=== PATIENT | female | born 1985 | race Caucasian/White ===

== ENCOUNTER 2020-11-29 12:56 | Emergency (ER) | payer MEDICAID, OTHER ==
[~2020-11-29] VITALS: Ht 167.6 cm; Wt 47.7 kg
[2020-11-29 13:00] VITALS: BP 116/76
[2020-11-29] MEDS ORDERED: LIDOcaine 1% W/epiNEPHrine 1:200,000 10ml vial IJ ONE (13:35)
[2020-11-29] MEDS ORDERED: CEPH250T PO (14:14)
[2020-11-29] MEDS ORDERED: SULF1TAB45 PO (14:14)
--- NOTE | 2020-11-29 14:20 | NUR ---
nakul Houser engaged in procedure bedside
== END 2020-11-29 14:38 | disposition home or self-care (01) ==
LOC: ER 12:57
DX: L02.416 Cutaneous abscess of left lower limb (principal); Z79.2 Long term (current) use of antibiotics; Z79.899 Other long term (current) drug therapy
CPT/HCPCS: 10060; 99283

== ENCOUNTER 2021-11-08 17:41 | Emergency (ER) | payer MEDICAID, OTHER ==
[~2021-11-08] VITALS: Ht 167.6 cm; Wt 47.7 kg
[2021-11-08 17:55] VITALS: BP 117/80
[2021-11-08] MEDS ORDERED: HYDR20OI TOP (18:06)
[2021-11-08] MEDS ORDERED: triamcinolone acetonide 40mg/ml inj IM ONE (18:15)
== END 2021-11-08 18:34 | disposition home or self-care (01) ==
LOC: ER 17:41
DX: R21 Rash and other nonspecific skin eruption (principal); M79.641 Pain in right hand; Z79.899 Other long term (current) drug therapy
CPT/HCPCS: 96372; 99283; J3301

== ENCOUNTER 2022-06-19 02:01 | Emergency (ER) | payer MEDICAID ==
[~2022-06-19] VITALS: Ht 167.6 cm; Wt 47.7 kg
[~2022-06-19 02:01] MED LIST: HYDR20OI TOP
[2022-06-19 02:03] VITALS: BP 118/81
== END 2022-06-20 06:50 | disposition home or self-care (01) ==
LOC: ER 02:02
DX: S01.81XD Laceration without foreign body of other part of head, subsequent encounter (principal); Z48.00 Encounter for change or removal of nonsurgical wound dressing; X58.XXXD Exposure to other specified factors, subsequent encounter
CPT/HCPCS: 99281

== ENCOUNTER 2022-10-19 16:23 | Emergency (ER) | payer MEDICAID ==
[~2022-10-19] VITALS: Ht 167.6 cm; Wt 50.0 kg
[2022-10-19] MEDS ORDERED: triamcinolone acetonide 0.5% cream 15gm TP STA (16:41)
[2022-10-19] MEDS ORDERED: triamcinolone acetonide 40mg/ml inj IM ONE (16:45)
[2022-10-19] MEDS ORDERED: PRED10TA23 PO (16:47)
[2022-10-19] MEDS ORDERED: TRIA15CR61 TOP (16:47)
[2022-10-19 17:06] VITALS: BP 108/79
== END 2022-10-19 17:07 | disposition home or self-care (01) ==
LOC: ER 16:24
DX: L30.9 Dermatitis, unspecified (principal); Z79.899 Other long term (current) drug therapy
CPT/HCPCS: 96372; 99284; J3301; 99283

== ENCOUNTER 2022-10-30 03:58 | Emergency (ER) | payer MEDICAID ==
[~2022-10-30] VITALS: Ht 167.6 cm; Wt 50.0 kg
[~2022-10-30 03:58] MED LIST changes: +TRIA15CR61 TOP
[2022-10-30 04:14] VITALS: BP 94/73
[2022-10-30] MEDS ORDERED: DOXYCYCLINE 100MG CAPSULE PO STA (04:28)
[2022-10-30] MEDS ORDERED: DOXY100C43 PO (04:29)
[2022-10-30] MEDS ORDERED: ibuprofen 200mg tablet PO ONE (04:30)
== END 2022-10-30 04:43 | disposition home or self-care (01) ==
LOC: ER 03:58
DX: L03.115 Cellulitis of right lower limb (principal); Z79.899 Other long term (current) drug therapy
CPT/HCPCS: 99283

== ENCOUNTER 2022-12-02 01:21 | Emergency (ER) | payer MEDICAID ==
[~2022-12-02] VITALS: Ht 167.6 cm; Wt 48.4 kg
[~2022-12-02 01:21] MED LIST changes: -TRIA15CR61 TOP
[2022-12-02 01:45] VITALS: BP 121/88
[2022-12-02] MEDS ORDERED: acetaminophen 325mg tablet PO ONE (05:05)
== END 2022-12-02 08:43 | disposition left against medical advice (07) ==
LOC: ER 01:21
DX: S51.832A Puncture wound without foreign body of left forearm, initial encounter (principal); Z53.21 Procedure and treatment not carried out due to patient leaving prior to being seen by health care provider; W54.0XXA Bitten by dog, initial encounter; Y93.89 Activity, other specified; Y92.89 Other specified places as the place of occurrence of the external cause; Y99.8 Other external cause status
CPT/HCPCS: 99281

== ENCOUNTER 2023-06-18 22:21 | Emergency (ER) | payer MEDICAID ==
[~2023-06-18] VITALS: Ht 167.6 cm; Wt 50.0 kg
[2023-06-19] MEDS ORDERED: PRED20TA PO (03:26)
[2023-06-19] MEDS ORDERED: dexamethasone sod phosphate 10mg/ml inj IM STA (03:42)
[2023-06-19 03:49] VITALS: BP 138/84; PULSE 79; RESP 17; TEMP 98.2; O2SAT 98
== END 2023-06-19 03:50 | disposition home or self-care (01) ==
LOC: ER 22:23
DX: L30.9 Dermatitis, unspecified (principal); Z79.899 Other long term (current) drug therapy
CPT/HCPCS: 96372; 99283; J1100

== ENCOUNTER 2024-10-10 00:57 | Emergency (ER) | payer MEDICAID, OTHER ==
[~2024-10-10] VITALS: Ht 167.6 cm; Wt 49.1 kg
[2024-10-10 01:02] VITALS: TEMP 97.8
[2024-10-10] MEDS ORDERED: CEPH-585 PO (03:05)
[2024-10-10] MEDS: cephalexin 250mg capsule PO ONE (03:14)
[2024-10-10] MEDS: ibuprofen tablet 400 MG TABLET PO ONE (03:14)
[2024-10-10] MEDS: TETanus/Pertussis (Acell)/Diphther VAC/PF (Tdap-Adult) 0.5ml syringe IMVAC ONE (03:16)
[2024-10-10 03:20] VITALS: BP 106/67; PULSE 85; RESP 16; O2SAT 100
== END 2024-10-10 03:23 | disposition home or self-care (01) ==
LOC: ER 00:57
DX: L03.115 Cellulitis of right lower limb (principal); Z79.899 Other long term (current) drug therapy
CPT/HCPCS: 90471; 90715; 99283

== ENCOUNTER 2024-10-13 13:25 | Emergency (ER) | payer OTHER ==
[~2024-10-13] VITALS: Ht 167.6 cm; Wt 45.8 kg
[~2024-10-13 13:25] MED LIST changes: +CEPH-585 PO
[2024-10-13] MEDS ORDERED: SULF1TAB49 PO (14:17)
[2024-10-13 14:42] VITALS: BP 117/63; PULSE 65; RESP 17; TEMP 98; O2SAT 99
== END 2024-10-13 14:38 | disposition home or self-care (01) ==
LOC: ER 13:26
DX: L02.611 Cutaneous abscess of right foot (principal); L73.2 Hidradenitis suppurativa
CPT/HCPCS: 99283